=== PATIENT | male | born 1965 | race Caucasian/White ===

== ENCOUNTER → 2018-02-21 | Outpatient (CLI) | payer OTHER | END | disposition home or self-care (01) | LOC: CARD 08:20 | PROVIDERS: ATTEND Family Medicine | DX: Q76.6 Other congenital malformations of ribs (principal) | CPT/HCPCS: 71046; 93017 ==

== ENCOUNTER → 2018-03-11 | Outpatient (CLI) | payer OTHER | END | disposition home or self-care (01) | LOC: CFH 08:33 | PROVIDERS: ATTEND Family Medicine | DX: Q33.9 Congenital malformation of lung, unspecified (principal); Q76.6 Other congenital malformations of ribs; N20.0 Calculus of kidney; R06.02 Shortness of breath | CPT/HCPCS: 71250 ==